=== PATIENT | male | born 1930 | race Caucasian/White ===

== ENCOUNTER 2016-11-15 12:14 | Emergency (ER) | payer MEDICARE, OTHER | END 2016-11-15 16:14 | disposition home or self-care (01) | DX: I10 Essential (primary) hypertension (principal); S09.90XA Unspecified injury of head, initial encounter; M54.2 Cervicalgia; W19.XXXA Unspecified fall, initial encounter; Z91.81 History of falling; M85.88 Other specified disorders of bone density and structure, other site; M50.30 Other cervical disc degeneration, unspecified cervical region; M51.36 Other intervertebral disc degeneration, lumbar region; Z86.73 Personal history of transient ischemic attack (TIA), and cerebral infarction without residual deficits; Z79.02 Long term (current) use of antithrombotics/antiplatelets; Z79.82 Long term (current) use of aspirin ==

== ENCOUNTER 2017-10-02 11:28 | Outpatient (CLI) | payer MEDICARE, OTHER | END 2017-10-02 11:29 | disposition critical access hospital (66) | LOC: EMS 11:28 | PROVIDERS: ATTEND Surgery | DX: R41.0 Disorientation, unspecified (principal); R47.9 Unspecified speech disturbances | CPT/HCPCS: A0425; A0429 ==